=== PATIENT | male | born 1970 | race Caucasian/White ===

== ENCOUNTER 2018-12-07 02:57 | Emergency (ER) | payer SELFPAY ==
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
[2018-12-07] MEDS ORDERED: Sodium Chloride 0.9% 1,000 ML IV SCH (03:15)
[2018-12-07] MEDS ORDERED: Etomidate 2 MG/ML 20 ML SDV IVPUSH ONE (03:32)
[2018-12-07] MEDS ORDERED: Iopamidol 612 MG/ML 100 ML Bottle IVPUSH ONE (03:41)
[2018-12-07] MEDS ORDERED: Sodium Chloride 0.9% 10 ML Syringe FLUSH ONE (03:41)
[2018-12-07] MEDS ORDERED: HYDROmorphone 0.5 MG/0.5 ML Syringe IVPUSH ONE (04:19)
[2018-12-07] MEDS ORDERED: Ondansetron 4 MG/2 ML SDV IVPUSH ONE (04:20)
--- NOTE | 2018-12-07 08:16 | CT ---
Head CT Technique: Multiple axial sections through the brain were obtained. Intravenous contrast was not utilized. Comparison: No prior intracranial imaging is available. Findings: Ventricles along with basal cisterns and sulci over the convexities are mildly prominent. No abnormal parenchymal densities are seen. No evidence of intracranial hemorrhage. No midline shift or mass effect is seen. Bone window settings were reviewed which show no acute calvarial abnormality. Visualized mastoid sinuses and paranasal sinuses show nothing acute. Impression: 1. Slightly prominent atrophy for the patient's age which can be due to previous head trauma as well as some types of medication and drug abuse. 2. Nothing acute is appreciated on noncontrast head CT study. Diagnostic code #2 I agree with preliminary report from [facility], finalized on 12/07/18, 5:27 AM Central Time
--- NOTE | 2018-12-07 08:16 | CR ---
Right hand: Two views of the right hand are obtained. Comparison: No previous hand exam is available. Joint spaces are preserved. No acute fracture or other bony abnormality is seen. Impression: 1. No bony abnormality is appreciated on two-view right hand exam. Diagnostic code #1
--- NOTE | 2018-12-07 08:16 | CT ---
CT chest Technique: Multiple axial sections were obtained from above the lung apices inferiorly through the lung bases. Intravenous contrast was utilized. Comparison: No prior chest imaging. Findings: Lungs are clear. No pulmonary contusion is seen. No pleural effusions or pneumothorax is seen. Mediastinum and hilar regions appear within normal limits. Aorta shows no aneurysm. No pericardial thickening is seen. No axillary adenopathy is seen. No discrete rib abnormality is seen. No compression deformities are seen within the spine. Impression: 1. Nothing acute is seen on CT study of the chest. Diagnostic code #1 I agree with preliminary report from [id number], finalized on 12/07/18, 5:[address] abdomen and pelvis Technique: Multiple axial sections were obtained from above the dome of the diaphragm inferiorly through the pubic symphysis. Intravenous contrast was utilized. No oral contrast has been given. Comparison: No previous CT abomen or pelvis study is available. Findings: Very minimal low density lesion is noted within the dome of the right lobe measuring about 2 mm in size. This is nonspecific due to its small size but is most likely due to a small hepatic cyst. No additional abnormality is seen within the liver. Gallbladder shows no calcified gallstones. Spleen appears within normal limits. Adrenal glands show no nodule. Pancreas is within normal limits. Kidneys show symmetric contrast enhancement without hydronephrosis or mass. Aorta shows no aneurysm with atherosclerotic calcification. Atherosclerotic calcification continues into the iliac vessels. No retroperitoneal adenopathy or mesenteric abnormalities are seen. No pelvic mass or adenopathy is seen. No free fluid or inflammatory change is seen. Delayed images show contrast within the distal ureters and within the bladder. Appendix is seen and is normal in size. Bone window settings were reviewed which show no discrete osseous abnormality within the lumbar spine, pelvis or hips. Impression: 1. Small liver lesion as noted above which is felt to be the incidental and benign. 2. Nothing acute is seen on CT study of the abdomen and pelvis. Diagnostic code #2 I agree with preliminary report from [id number], finalized on 12/07/18, 5:25 AM Central Time
== END 2018-12-07 05:15 | disposition home or self-care (01) ==
LOC: JD.ED 02:57
DX: S22.41XA Multiple fractures of ribs, right side, initial encounter for closed fracture (principal); S00.03XA Contusion of scalp, initial encounter; S60.221A Contusion of right hand, initial encounter; S60.222A Contusion of left hand, initial encounter; I10 Essential (primary) hypertension; F32.9 Major depressive disorder, single episode, unspecified; Z79.899 Other long term (current) drug therapy; Y04.0XXA Assault by unarmed brawl or fight, initial encounter
CPT/HCPCS: 36415; 70450; 71260; 73120; 74177; 80053; 81001; 82150; 85025; 86850; 86900; 86901; 96361; 96374; 96375; 99285; J1170; J2405; J7040; Q9967; 99284

== ENCOUNTER 2019-07-13 22:29 | Emergency (ER) | payer BC ==
[2019-07-13] MEDS ORDERED: Diphtheria,Pertussis(Acell),Tetanus Vaccine 0.5 ML Syringe IM ONE (22:46)
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
[2019-07-13] MEDS ORDERED: Ondansetron 4 MG Tab.DIS PO ONE ×3 (22:56→23:59)
[2019-07-13] MEDS ORDERED: Lidocaine 1% 20 ML MDV INJECT ONE (23:19)
[2019-07-13] MEDS ORDERED: Lidocaine 1% 30 ML SDV ONE (23:22)
[2019-07-13] MEDS ORDERED: Sodium Chloride 0.9% 1,000 ML SCH (23:30)
[2019-07-13] MEDS ORDERED: cefTRIAXone 1 GM, Lidocaine 1% 2.1 ML IM ONE ×2 (23:47)
--- NOTE | 2019-07-14 08:16 | CR ---
Left hand: 4 views of the left hand were obtained. Comparison: No prior hand exam. Small calcification is noted off the DIP joint of the 5th digit compatible with old injury. Additional small calcification is noted off the medial wrist also felt compatible with old injury. Joint spaces are fairly well preserved. No acute fracture, dislocation or other bony abnormality is seen. Soft tissue injury is seen. No radiopaque foreign object is identified. Impression: 1. Findings of old injury. 2. No radiopaque foreign object is seen. Soft tissue injury is noted. 2. No acute bony abnormality is appreciated. Diagnostic code #2 This report was dictated in MDT
== END 2019-07-14 00:10 | disposition home or self-care (01) ==
LOC: JD.ED 22:29
DX: S61.442A Puncture wound with foreign body of left hand, initial encounter (principal); Z23 Encounter for immunization; Z91.030 Bee allergy status; Z79.899 Other long term (current) drug therapy; V29.9XXA Motorcycle rider (driver) (passenger) injured in unspecified traffic accident, initial encounter
CPT/HCPCS: 12001; 73130; 90471; 90715; 99284; A9270; J0696; J2001; J7030; 12031; 99283